=== PATIENT | male | born 1980 | race Two or more races ===

== ENCOUNTER 2020-09-07 12:11 | Emergency (ER) | payer SELFPAY ==
[~2020-09-07] VITALS: Ht 170.2 cm; Wt 95.0 kg
[2020-09-07 12:36] VITALS: BP 162/92
--- NOTE | 2020-09-07 13:17 | PHYS DOC ---
Past Medical History Past Medical History: No Pertinent History Past Surgical History: Other Additional Past Surgical Histo: LEFT ARM SURGERY Smoking Status: Never Smoker Alcohol Use: Occasionally General Adult EDM: Chief Complaint: KNEE INJURY HPI: HPI: Patient is a 40 year old Male who presents with last Friday began having left knee burning type pain with redness, heat and swelling to the medial aspect of the knee that he rates an 8 out of 10. Is been taking ibuprofen and glucosamine. Patient states that he went to his clinic and they told him just to rest the extremity and take ibuprofen. 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 He does have to go up and down ladders and stairs frequently. He denies injury to the knee. He denies any numbness or tingling, coolness of the extremity. Patient denies any past medical history. He denies any fevers. Review of Systems: Review of Systems: Constitutional: Denies fever or chills. [] Eyes: Denies change in visual acuity. [] HENT: Denies nasal congestion or sore throat. [] Respiratory: Denies cough or shortness of breath. [] Cardiovascular: Denies chest pain or edema. [] GI: Denies abdominal pain, nausea, vomiting, bloody stools or diarrhea. [] : Denies dysuria. [] Musculoskeletal: Denies back pain. +Left knee joint pain and swelling. [] Integument: Denies rash. + Left knee redness [] Neurologic: Denies headache, focal weakness or sensory changes. [] Endocrine: Denies polyuria or polydipsia. [] Lymphatic: Denies swollen glands. [] Psychiatric: Denies depression or anxiety. [] Heart Score: Risk Factors: Risk Factors: DM, Current or recent (<one month) smoker, HTN, HLP, family history of CAD, obesity. Risk Scores: Score 0 - 3: 2.5% MACE over next 6 weeks - Discharge Home Score 4 - 6: 20.3% MACE over next 6 weeks - Admit for Clinical Observation Score 7 - 10: 72.7% MACE over next 6 weeks - Early Invasive Strategies Allergies: Allergies: Allergies Coded Allergies Type Severity Reaction Last Updated Verified Penicillins Allergy Intermediate Rash 09/07/20 Yes Physical Exam: PE: Constitutional: Well developed, well nourished, no acute distress, non-toxic appearance. [] HENT: Normocephalic, atraumatic, bilateral external ears normal, oropharynx moist, no oral exudates, nose normal. [] Eyes: PERRLA, EOMI, conjunctiva normal, no discharge. [] Neck: Normal range of motion, no tenderness, supple, no stridor. [] Cardiovascular:Heart rate regular rhythm, no murmur [] Lungs & Thorax: Bilateral breath sounds clear to auscultation [] Abdomen: Bowel sounds normal, soft, no tenderness, no masses, no pulsatile masses. [] Skin: Warm, dry, left medial knee erythema, no rash. [] Back: No tenderness, no CVA tenderness. [] Extremities: Medial knee tenderness, no cyanosis, no clubbing, ROM intact, left knee 2+ edema. [] Neurologic: Alert and oriented X 3, normal motor function, normal sensory function, no focal deficits noted. [] Psychologic: Affect normal, judgement normal, mood normal. [] Current Patient Data: Vital Signs: Vital Signs Date Time Temp Pulse Resp B/P (MAP) Pulse Ox O2 Delivery O2 Flow Rate FiO2 09/07/20 12:36 98.3 97 12 162/92 (115) 97 Room Air 98.3 EKG: EKG: [] Radiology/Procedures: Radiology/Procedures: [] Impression: [facility] [address] [place], [place] [id number] IMAGING REPORT Signed PATIENT: MIRNA TALBERTOUNT: [id number] : 1980 LOCATION: ER AGE: 40 SEX: M EXAM STATUS: REG ER ORD. PHYSICIAN: REEMA RAMOS APRN REASON: pain, swelling, redness PROCEDURE: KNEE LEFT 4V XR KNEE _4 VIEWS WITH PATELLA_LT DATE: 09/07/2020 1:05 PM INDICATION: Reason: pain, swelling, redness / Spl. Instructions: / History: COMPARISON: None. FINDINGS: Bones: There is no evidence of acute fracture or dislocation. Joints: Mild medial compartment joint space narrowing. There is no joint effusion. Miscellaneous: Prepatellar soft tissue swelling. IMPRESSION: No acute osseous abnormality. Electronically signed by: Dayna Brooks MD (09/07/2020 2:19 PM) [id number] DICTATED and SIGNED BY: DAYNA BROOKS MD DATE: 09/07/20 [id number] 0 Course & Med Decision Making: Course & Med Decision Making Pertinent Labs and Imaging studies reviewed. (See chart for details) Left knee is 2+ swollen with medial redness and heat and tenderness with palpation. Skin otherwise pink warm and dry. Afebrile. Popliteal pulses present. Cap refill less than 2 seconds. And sensations intact. No focal we akness. He is able to ambulate and put pressure on the knee. It is painful to move the knee. He has full range of motion of the left knee. Blood cell count is slightly elevated at 11.5. CRP is elevated. Afebrile. I spoken to Dr. Kunz about this patient and he states to put him on Keflex and Bactrim and prednisone have him continue with the anti-inflammatory like ibuprofen. Patient is given vancomycin, Toradol and Solu-Medrol in the ED before leaving. [] Dragon Disclaimer: Dragon Disclaimer: This electronic medical record was generated, in whole or in part, using a voice recognition dictation system. Departure Departure Impression: Primary Impression: Bursitis Qualified Codes: M70.52 - Other bursitis of knee, left knee Disposition: 01 DC HOME SELF CARE/HOMELESS Condition: STABLE Referrals: NO PCP (PCP) MICHAEL BETH MD Patient Instructions: Bursitis Additional Instructions: Follow-up with primary care provider or I have referred you to Dr. Beth who is an orthopedic doctor. Try to follow-up in the next week. Take medication as prescribed and with food. Scripts Ibuprofen (IBUPROFEN) 600 Mg Tablet 600 MG PO PRN Q6HRS PRN for INFLAMMATION, #25 TAB Prov: REEMA RAMOS BEAM MACHINE OPERATOR 09/07/20 Prednisone (PREDNISONE) 20 Mg Tablet 1 TAB PO BID, #10 TAB Prov: REEMA RAMOS BEAM MACHINE OPERATOR 09/07/20 Sulfamethoxazole/Trimethoprim (BACTRIM DS TABLET) 1 Each Tablet 1 TAB PO BID for 10 Days, #20 TAB 0 Refills Prov: REEMA RAMOS BEAM MACHINE OPERATOR 09/07/20 Cephalexin (CEPHALEXIN) 500 Mg Tablet 1 TAB PO QID, #40 TAB Prov: REEMA RAMOS APRN 09/07/20 REEMA RAMOS APRN Sep 07, 2020 13:17
--- NOTE | 2020-09-07 14:21 | RAD ---
XR KNEE _4 VIEWS WITH PATELLA_LT DATE: 09/07/2020 1:05 PM INDICATION: Reason: pain, swelling, redness / Spl. Instructions: / History: COMPARISON: None. FINDINGS: Bones: There is no evidence of acute fracture or dislocation. Joints: Mild medial compartment joint space narrowing. There is no joint effusion. Miscellaneous: Prepatellar soft tissue swelling. IMPRESSION: No acute osseous abnormality. Electronically signed by: Denny Brooks MD (09/07/2020 2:19 PM) [id number]
[2020-09-07 14:22] LABS: BASO # 0.1 x10^3/uL (0.0-0.2); BASO % 1 % (0-3); EOS # 0.1 x10^3/uL (0.0-0.7); EOS % 1 % (0-3); HEMATOCRIT 40.6 % (39.0-53.0); HEMOGLOBIN 13.9 g/dL (13.0-17.5); LYMPH # 1.3 x10^3/uL (1.0-4.8); LYMPH % 11 % (24-48); MEAN CORPUSCULAR HEMOGLOBIN 30 pg (25-35); MEAN CORPUSCULAR HGB CONC 34 g/dL (31-37); MEAN CORPUSCULAR VOLUME 88 fL (79-100); MONO % 9 % (0-9); NEUT % 79 % (31-73); PLATELET COUNT 258 x10^3/uL (140-400); RED BLOOD COUNT 4.61 x10^6/uL (4.30-5.70); WHITE BLOOD COUNT 11.5 x10^3/uL (4.0-11.0)
[2020-09-07 14:43] LABS: CALCIUM 8.8 mg/dL (8.5-10.1); CREATININE 0.7 mg/dL (0.7-1.3); GFR 124.3; POTASSIUM 3.9 mmol/L (3.5-5.1)
[2020-09-07 14:50] LABS: ALBUMIN 3.5 g/dL (3.4-5.0); ALBUMIN/GLOBULIN RATIO 0.8 (1.0-1.7); C-REACTIVE PROTEIN 35.5 mg/L (0-3.3); TOTAL BILIRUBIN 0.3 mg/dL (0.2-1.0); TOTAL PROTEIN 8.1 g/dL (6.4-8.2); URIC ACID 4.4 mg/dL (3.5-7.2)
[2020-09-07] MEDS ORDERED: IBUP-1007 PO (15:09)
[2020-09-07] MEDS ORDERED: CEPH500T PO (15:09)
[2020-09-07] MEDS ORDERED: PRED20TA PO (15:09)
[2020-09-07] MEDS ORDERED: SULF1TAB24 PO (15:09)
[2020-09-07] MEDS ORDERED: VANCOMYCIN 1GM IVPB FOR OMNI 250 ML IV ONE (15:15)
[2020-09-07] MEDS ORDERED: methylPREDNISolone SOD SUCC PF 125 MG/2 ML VIAL. IV ONE (15:15)
[2020-09-07] MEDS ORDERED: KETOROLAC 30 MG/ML VIAL. IVP ONE (15:15)
[2020-09-07] MEDS ORDERED: VANCOMYCIN 2 GM in IV NORMAL SALINE 500ML BAG 500 ML IV ONE (15:30)
== END 2020-09-07 18:27 | disposition home or self-care (01) ==
LOC: ER 12:11 → EDBD 12:11 → ER 18:27
DX: M70.52 Other bursitis of knee, left knee (principal); M25.562 Pain in left knee; R60.0 Localized edema; Z98.890 Other specified postprocedural states
CPT/HCPCS: 36415; 73564; 80053; 84550; 85025; 86140; 96365; 96375; 99284; J1885; J2930; J3370; J7040

== ENCOUNTER 2020-09-21 09:24 | Inpatient (IN) | payer SELFPAY ==
[~2020-09-21] VITALS: Ht 175.3 cm; Wt 102.3 kg
[~2020-09-21 09:24] MED LIST: CEPH500T PO; IBUP-1007 PO; MORPHINE SULFATE 4 MG/ML VIAL. IV PRN; PRED20TA PO; SULF1TAB24 PO
--- NOTE | 2020-09-21 10:12 | PHYS DOC ---
Past Medical History Past Medical History: No Pertinent History Past Surgical History: Other Additional Past Surgical Histo: LEFT ARM SURGERY Smoking Status: Never Smoker Alcohol Use: Occasionally General Adult EDM: Chief Complaint: KNEE SWELLING HPI: HPI: 40 male with no pmh presents to the ed with his daughter, c/o left medial knee swelling/warmth and redness that started 2-3 weeks ago, no change with ciprofloxacin, Keflex and dicloxacillin (dicloxacillin started yesterday by Dr. Hall). Was seen by Dr. Hall yesterday and was told arthrocentesis was not indicated, that if patient felt worse to come to the ED. EMR reviewed-pt was prescribed Bactrim and Keflex on 07 September, suspected bursitis. Pt able to bend knee and ambulate-has no restricted range of motion. No history of gout or IV drug use. Denies any trauma. States 2 months ago he banged his knee on the dashboard getting in and out of his vehicle-but was able to ambulate and bend the knee immediately after this event without any significant pain. Review of Systems: Review of Systems: Constitutional: Denies fever or chills. [] Eyes: Denies change in visual acuity. [] HENT: Denies nasal congestion or sore throat. [] Respiratory: Denies cough or shortness of breath. [] Cardiovascular: Denies chest pain or edema. [] GI: Denies abdominal pain, nausea, vomiting, bloody stools or diarrhea. [] : Denies dysuria or hematuria Musculoskeletal: Denies back pain or flank pain Integument: Denies diaphoresis or black skin Neurologic: Denies headache, focal weakness or sensory changes. [] Endocrine: Denies polyuria or polydipsia. [] Lymphatic: Denies swollen glands. [] Psychiatric: Denies depression or anxiety. [] Heart Score: Risk Factors: Risk Factors: DM, Current or recent (<one month) smoker, HTN, HLP, family history of CAD, obesity. Risk Scores: Score 0 - 3: 2.5% MACE over next 6 weeks - Discharge Home Score 4 - 6: 20.3% MACE over next 6 weeks - Admit for Clinical Observation Score 7 - 10: 72.7% MACE over next 6 weeks - Early Invasive Strategies Allergies: Allergies: Allergies Coded Allergies Type Severity Reaction Last Updated Verified Penicillins Allergy Intermediate Rash 09/07/20 Yes Physical Exam: PE: Constitutional: Well developed, well nourished, no acute distress, non-toxic appearance. HENT: Normocephalic, atraumatic, Eyes: EOMI, conjunctiva normal, no discharge. Neck: Normal range of motion, supple, Cardiovascular: S1/2 present, regular rhythm Lungs & Thorax: Speaking in full sentences, bilateral equal chest rise, no tachypnea or increased work of breathing Abdomen: soft, no tenderness, Skin: Warm, dry, raised/indurated/erythematous 3x3cm region over medial left knee (at 7 o'clock position in regards to patella, but is lateral to the patella) Back: No tenderness, no CVA tenderness. [] Extremities: No tenderness, no cyanosis, no edema Neurologic: Alert and oriented X 3, normal motor function, normal sensory function, no focal deficits noted. [] Psychologic: Affect normal, judgement normal, mood normal. [] Current Patient Data: Vital Signs: Vital Signs Date Time Temp Pulse Resp B/P (MAP) Pulse Ox O2 Delivery O2 Flow Rate FiO2 09/21/20 09:36 98.3 64 18 138/87 (104) 97 Room Air 98.3 EKG: EKG: [] Radiology/Procedures: Radiology/Procedures: IMAGING REPORT Signed PATIENT: YANELIS TALBERT: [id number] : 1980 LOCATION: ER AGE: 40 SEX: M EXAM STATUS: REG ER ORD. PHYSICIAN: JAMES HUNG DO REASON: anterior medial pain, swelling below patella PROCEDURE: KNEE LEFT 3V 3 views right knee 09/21/2020 9:54 AM Indication: Reason: anterior medial pain, swelling below patella / Spl. Instructions: / History: Comparison: None Findings: There appears to be an osteochondral defect/fracture involving the superior medial femoral condyle. No other fracture or dislocation is identified. Significant joint effusion is identified. IMPRESSION: Possible osteochondral defect/fracture involving superior medial femoral condyle. Recommend CT or MRI for confirmation/further evaluation Electronically signed by: Andrea Aly MD (09/21/2020 10:26 AM) [id number] DICTATED and SIGNED BY: ANDREA ALY MD DATE: 09/21/20 [id number] 0 Indication: Left knee effusion Consent: Consent given by patient. Procedure: The patient was positioned appropriately and the landmarks were identified. Local anesthesia was used in the 4 o'clock position and 11 o'clock position surrounding the patella. The area was then prepped and draped in the usual sterile fashion. A needle was then introduced into the joint space -both attempts with no fluid aspirated. Ultrasound was used-cobblestoning over left lateral patella and medial aspect of patella. There is an effusion that is approximately 1.5- 2 inches above the patella but via ultrasound, collection does not connect to the joint space -skin over this effusion normal-not red/indurated The patient tolerated the procedure well. Complications: none. Course & Med Decision Making: Course & Med Decision Making Pertinent Labs and Imaging studies reviewed. (See chart for details) Concern for medial left knee cellulitis that has significantly improved from his prior infection 2 weeks ago, but is still present. Daughter was present at bedside and said initially the cellulitis extended over his distal medial thigh and left lower medial leg. I spoke with Dr. Colón, Ortho, regarding ultrasound findings/cobblestoning (which is c/w cellulitis), dry arthrocentesis attempt x2. Patient afebrile with no leukocytosis, CRP is not elevated. Patient is able to bend the knee. These are not signs consistent with septic joint. I suspect cellulitis has not fully resolved and patient is requiring further antibiotics. Will admit for abx and ID consultation. Ortho to follow. Patient excepted by Dr. Davison. Patient agrees with this plan and was stable at time of admission. I have spoken with the patient and/or caregivers. I have explained the patient's condition, diagnosis and treatment plan based on the information available to me at this time. I have answered the patient's and/or caregivers questions and answered any concerns. The patient and/or caregivers have as good an understanding of the patient's diagnosis, condition and treatment plan as can be expected at this point. The patient has been stabilized within the capability of the emergency department. The patient will be transported for further care and management or will be moved to an observation or inpatient service. I have communicated with the staff or medical practitioner taking over this patient's care. Joce Disclaimer: Joce Disclaimer: This electronic medical record was generated, in whole or in part, using a voice recognition dictation system. Departure Departure Impression: Primary Impression: Cellulitis of left knee Disposition: ADMITTED INPT THIS HOSP Admitting Physician: GILMER (Dr. Davison) Condition: STABLE Referrals: NO PCP (PCP) JAMES HUNG DO Sep 21, 2020 10:11
[2020-09-21] MEDS ORDERED: VANCOMYCIN PER PHARMACY MC PRN (10:15)
--- NOTE | 2020-09-21 10:28 | RAD ---
3 views right knee 09/21/2020 9:54 AM Indication: Reason: anterior medial pain, swelling below patella / Spl. Instructions: / History: Comparison: None Findings: There appears to be an osteochondral defect/fracture involving the superior medial femoral condyle. No other fracture or dislocation is identified. Significant joint effusion is identified. IMPRESSION: Possible osteochondral defect/fracture involving superior medial femoral condyle. Recomme nd CT or MRI for confirmation/further evaluation Electronically signed by: Andrea Peter MD (09/21/2020 10:26 AM) [id number]
[2020-09-21] MEDS ORDERED: VANCOMYCIN 2 GM in IV NORMAL SALINE 500ML BAG 500 ML IV ONE (10:30)
[2020-09-21 10:43] LABS: BASO % 1 % (0-3); EOS # 0.2 x10^3/uL (0.0-0.7); EOS % 3 % (0-3); HEMATOCRIT 40.7 % (39.0-53.0); HEMOGLOBIN 13.8 g/dL (13.0-17.5); LYMPH # 1.8 x10^3/uL (1.0-4.8); LYMPH % 29 % (24-48); MEAN CORPUSCULAR HEMOGLOBIN 30 pg (25-35); MEAN CORPUSCULAR HGB CONC 34 g/dL (31-37); MEAN CORPUSCULAR VOLUME 88 fL (79-100); MONO # 0.5 x10^3/uL (0.0-1.1); MONO % 8 % (0-9); NEUT # 3.8 x10^3/uL (1.8-7.7); NEUT % 60 % (31-73); PLATELET COUNT 227 x10^3/uL (140-400); RED BLOOD COUNT 4.64 x10^6/uL (4.30-5.70); RED CELL DISTRIBUTION WIDTH 14.5 % (11.5-14.5); WHITE BLOOD COUNT 6.3 x10^3/uL (4.0-11.0)
[2020-09-21] MEDS ORDERED: BUPIVACAINE MPF 0.5% 30 ML VIAL. INJ ONE (10:45)
[2020-09-21 10:51] LABS: ANION GAP 10 (6-14); BLOOD UREA NITROGEN 15 mg/dL (8-26); CARBON DIOXIDE 26 mmol/L (21-32); CHLORIDE 104 mmol/L (98-107); CREATININE 0.7 mg/dL (0.7-1.3); GFR 124.3; GLUCOSE 92 mg/dL (70-99); POTASSIUM 4.3 mmol/L (3.5-5.1); SODIUM 140 mmol/L (136-145)
[2020-09-21 10:54] LABS: C-REACTIVE PROTEIN < 0.5 mg/L (0-3.3)
[2020-09-21 11:23] LABS: PROTHROMBIN TIME PATIENT 13.4 SEC (11.7-14.0)
[2020-09-21] MEDS ORDERED: fentaNYL PF VIAL 100 MCG/2 ML VIAL IV PRN (15:15)
[2020-09-21] MEDS ORDERED: ONDANSETRON PF 4 MG/2 ML VIAL. IV PRN (15:15)
[2020-09-21] MEDS ORDERED: DEXTROSE 50% 25 GM / 50ML DISP.SYRIN. IV PRN (15:45)
[2020-09-21] MEDS ORDERED: ACETAMINOPHEN 325 MG TABLET. PO PRN (15:45)
[2020-09-21] MEDS ORDERED: DOCUSATE SODIUM 100 MG CAPSULE. PO PRN (15:45)
[2020-09-21] MEDS ORDERED: ONDANSETRON PF 4 MG/2 ML VIAL. IVP PRN (15:45)
[2020-09-21] MEDS ORDERED: MORPHINE SULFATE 2 MG/ML VIAL. IV PRN (15:45)
[2020-09-21] MEDS ORDERED: SENNOSIDES 8.6 MG TABLET PO PRN (15:45)
--- NOTE | 2020-09-21 16:44 | NUR ---
Pharmacy Vancomycin Dosing Note S:Consulted to monitor and dose vancomycin started 09/21/20. O:CALEB TALBERT is a 40 year old M with cellulitis. Height: 5 feet, 9 inches Weight: 100.0 kg Dosing Weight: Actual Other Antibiotics: N/A LABS: Last BUN: 15 Last Creatinine: 0.7 Creatinine Clearance: > 100 Last WBC: 6.3 Tmax (past 24 hours): 98.3 Microbiology: BLOOD CX IN PROCESS A: Patient requires vancomycin for cellulitis, goal trough 10-20 mcg/ml. His SCr is 0.7 with an eCrCl of > 120 ml/min. Vancomycin 2g dose given in ER earlier today. P: 1. Initiate Vancomycin 1500 mg IV q8h 2. Follow up Trough level on 09/22/20 at 1030 3. Pharmacy will continue to monitor, follow and adjust therapy as needed. MARIELA BROWN, [facility], 09/21/20 [id number]
[2020-09-21] MEDS: VANCOMYCIN 1.5 GM in IV NORMAL SALINE 500ML BAG 500 ML IV SCH (16:58)
--- NOTE | 2020-09-21 17:42 | PDOC1 ---
History and Physical Date of Service: DOS: DATE: 09/21/20 TIME: 17:35 Chief Complaint: Chief Complain: Left knee swelling and redness History of Present Illness: HPI: 40 male with no pmh presents to the ed with his daughter, c/o left medial knee swelling/warmth and redness that started 2-3 weeks ago, no change with ciprofloxacin, Keflex and dicloxacillin (dicloxacillin started yesterday by Dr. Hall). Was seen by Dr. Hall yesterday and was told arthrocentesis was not indicated, that if patient felt worse to come to the ED. EMR reviewed-pt was prescribed Bactrim and Keflex on 07 September, suspected bursitis. Pt able to bend knee and ambulate-has no restricted range of motion. No history of gout or IV drug use. Denies any trauma. States 2 months ago he banged his knee on the dashboard getting in and out of his vehicle-but was able to ambulate and bend the knee immediately after this event without any significant pain. Concern for medial left knee cellulitis that has significantly improved from his prior infection 2 weeks ago, but is still present. Daughter was present at bedside and said initially the cellulitis extended over his distal medial thigh and left lower medial leg. I spoke with Dr. Colón, Ortho, regarding ultrasound findings/cobblestoning (which is c/w cellulitis), dry arthrocentesis attempt x2. Patient afebrile with no leukocytosis, CRP is not elevated. Patient is able to bend the knee. These are not signs consistent with septic joint. Will admit for abx and ID consultation. Ortho to follow. Past Medical/Surgical History: PMH/PSH: Past Medical History: No Pertinent History Past Surgical History: LEFT ARM SURGERY Allergies: Allergies: Coded Allergies: Penicillins (Verified Allergy, Intermediate, Rash, 09/07/20) Family History: Family History: Reviewed with no relevant findings Social History: Social History: Smoking Status: Never Smoker Alcohol Use: Occasionally Current Medications: Current Medications Current Medications Vancomycin HCl (Vanco Per Pharmacy) 1 each PRN DAILY PRN MC SEE COMMENTS Last administered on 09/21/20at 16:42; Start 09/21/20 at 10:15 Vancomycin HCl 2 gm/Sodium Chloride 500 ml @ 250 mls/hr 1X ONCE IV Last admi nistered on 09/21/20at 10:35; Start 09/21/20 at 10:30; Stop 09/21/20 at 12:29; Status DC Bupivacaine HCl (Sensorcaine Mpf 0.5%) 30 ml 1X ONCE INJ Last administered on 09/21/20at 13:23; Start 09/21/20 at 10:45; Stop 09/21/20 at 10:46; Status DC Ondansetron HCl (Zofran) 4 mg PRN Q8HRS PRN IV NAUSEA/VOMITING; Start 09/21/20 at 15:15; Stop 09/22/20 at 15:14 Fentanyl Citrate (Fentanyl 2ml Vial) 50 mcg PRN Q1HR PRN IV PAIN; Start 09/21/20 at 15:15; Stop 09/22/20 at 15:14 Sennosides (Senna) 17.2 mg PRN BID PRN PO CONSTIPATION; Start 09/21/20 at 15:45 Docusate Sodium (Colace) 100 mg PRN DAILY PRN PO HARD STOOLS; Start 09/21/20 at 15:45 Ondansetron HCl (Zofran) 4 mg PRN Q6HRS PRN IVP NAUSEA/VOMITING; Start 09/21/20 at 15:45 Dextrose (Dextrose 50%-Water Syringe) 12.5 gm PRN Q15MIN PRN IV SEE COMMENTS; Start 09/21/20 at 15:45 Acetaminophen (Tylenol) 650 mg PRN Q4HRS PRN PO TEMP OVER 100.4F OR MILD PAIN; Start 09/21/20 at 15:45 Enoxaparin Sodium (Lovenox 40mg Syringe) 40 mg Q24H SQ ; Start 09/22/20 at 09:00 Morphine Sulfate (Morphine Sulfate) 1 mg PRN Q1HR PRN IV PAIN; Start 09/21/20 at 15:45 Morphine Sulfate (Morphine Sulfate) 2 mg PRN Q2HR PRN IV SEVERE PAIN 7-10; Start 09/21/20 at 04:00; Stop 09/22/20 at 03:59 Vancomycin HCl 1.5 gm/Sodium Chloride 500 ml @ 250 mls/hr Q8H IV Last administered on 09/21/20at 16:58; Start 09/21/20 at 17:00 Vancomycin HCl (Vancomycin Trough Level) 1 each 1X ONCE MC ; Start 09/22/20 at 10:30; Stop 09/22/20 at 10:31 Active Scripts Active Ibuprofen 600 Mg Tablet 600 Mg PO PRN Q6HRS PRN Prednisone 20 Mg Tablet 1 Tab PO BID Bactrim Ds Tablet (Sulfamethoxazole/Trimethoprim) 1 Each Tablet 1 Tab PO BID 10 Days Cephalexin 500 Mg Tablet 1 Tab PO QID ROS: Review of Systems Review of System REVIEW OF SYSTEMS: GENERAL: Denies weakness SKIN: No bruising, hair changes or rashes. EYES: No blurred, double or loss of vision. NOSE AND THROAT: No history of nosebleeds, hoarseness or sore throat. HEART: No history of palpitations, chest pain or shortness of breath on exertion. LUNGS: Denies cough, hemoptysis, wheezing or shortness of breath. GASTROINTESTINAL: Denies changes in appetite, nausea, vomiting, diarrhea or constipation. GENITOURINARY: No history of frequency, urgency, hesitancy or nocturia. NEUROLOGIC: Denies history of numbness, tingling, or tremor. PSYCHIATRIC: No history of panic, anxiety or depression. ENDOCRINE: No history of heat or cold intolerance, polyuria or polydipsia. EXTREMITIES: Denies joint pain, pain on walking or stiffness. Physical Exam: Vital Signs: Vital Signs Date Time Temp Pulse Resp B/P (MAP) Pulse Ox O2 Delivery O2 Flow Rate FiO2 09/21/20 15:33 70 122/66 (84) 100 Room Air 09/21/20 13:33 16 09/21/20 09:36 98.3 98.3 Physcial Exam: GEN: No apparent distress. Alert and oriented HEENT: Normal cephalic, atraumatic, external auditory canals are patent EYES: Extraocular muscles are intact, pupil are equally round and reactive to light and accommodation MUSCULOSKELETAL: Well developed , well nourished, good range of motion ENDOCRINE: No thyromegaly was palpated LYMPHATICS: No cervical chain or axillary nodes were noted HEMATOPOIETIC: No bruising NECK: Supple, no JVD, no thyromegaly was noted LUNGS: Clear to auscultation in all lung childress without rhonchi or wheezing HEART: RRR, S!, S2 present. Peripheral pulses intact, no obvious murmurs noted ABDOMEN: Soft, nontender. Positive bowel sounds, no organomegaly, normal bowel sounds EXTREMITIES: Without clubbing, cyanosis, or edema. Pedal pulses intact. Negative Homans sign NEUROLOGIC: Normal speech and tone. A&O x 3, moves all extremities, no obvious focal deficits PSYCHIATRIC: Normal affect, normal mood. Stable SKIN: No ulcerations or rashes, good skin turgor, no jaundice VASCULAR: Good capillary refill, neurovascular bundle appears to be intact Labs: Labs: Laboratory Tests Test 09/21/20 10:29 White Blood Count 6.3 x10^3/uL (4.0-11.0) Red Blood Count 4.64 x10^6/uL (4.30-5.70) Hemoglobin 13.8 g/dL (13.0-17.5) Hematocrit 40.7 % (39.0-53.0) Mean Corpuscular Volume 88 fL (79-100) Mean Corpuscular Hemoglobin 30 pg (25-35) Mean Corpuscular Hemoglobin Concent 34 g/dL (31-37) Red Cell Distribution Width 14.5 % (11.5-14.5) Platelet Count 227 x10^3/uL (140-400) Neutrophils (%) (Auto) 60 % (31-73) Lymphocytes (%) (Auto) 29 % (24-48) Monocytes (%) (Auto) 8 % (0-9) Eosinophils (%) (Auto) 3 % (0-3) Basophils (%) (Auto) 1 % (0-3) Neutrophils # (Auto) 3.8 x10^3/uL (1.8-7.7) Lymphocytes # (Auto) 1.8 x10^3/uL (1.0-4.8) Monocytes # (Auto) 0.5 x10^3/uL (0.0-1.1) Eosinophils # (Auto) 0.2 x10^3/uL (0.0-0.7) Basophils # (Auto) 0.0 x10^3/uL (0.0-0.2) Prothrombin Time 13.4 SEC (11.7-14.0) Prothromb Time International Ratio 1.1 (0.8-1.1) Activated Partial Thromboplast Time 29 SEC (24-38) Sodium Level 140 mmol/L (136-145) Potassium Level 4.3 mmol/L (3.5-5.1) Chloride Level 104 mmol/L (98-107) Carbon Dioxide Level 26 mmol/L (21-32) Anion Gap 10 (6-14) Blood Urea Nitrogen 15 mg/dL (8-26) Creatinine 0.7 mg/dL (0.7-1.3) Estimated GFR (Cockcroft-Gault) 124.3 Glucose Level 92 mg/dL (70-99) Lactic Acid Level 1.2 mmol/L (0.4-2.0) Calcium Level 9.0 mg/dL (8.5-10.1) C-Reactive Protein, Quantitative < 0.5 mg/L (0-3.3) Laboratory Tests Test 09/21/20 10:29 White Blood Count 6.3 x10^3/uL (4.0-11.0) Red Blood Count 4.64 x10^6/uL (4.30-5.70) Hemoglobin 13.8 g/dL (13.0-17.5) Hematocrit 40.7 % (39.0-53.0) Mean Corpuscular Volume 88 fL (79-100) Mean Corpuscular Hemoglobin 30 pg (25-35) Mean Corpuscular Hemoglobin Concent 34 g/dL (31-37) Red Cell Distribution Width 14.5 % (11.5-14.5) Platelet Count 227 x10^3/uL (140-400) Neutrophils (%) (Auto) 60 % (31-73) Lymphocytes (%) (Auto) 29 % (24-48) Monocytes (%) (Auto) 8 % (0-9) Eosinophils (%) (Auto) 3 % (0-3) Basophils (%) (Auto) 1 % (0-3) Neutrophils # (Auto) 3.8 x10^3/uL (1.8-7.7) Lymphocytes # (Auto) 1.8 x10^3/uL (1.0-4.8) Monocytes # (Auto) 0.5 x10^3/uL (0.0-1.1) Eosinophils # (Auto) 0.2 x10^3/uL (0.0-0.7) Basophils # (Auto) 0.0 x10^3/uL (0.0-0.2) Prothrombin Time 13.4 SEC (11.7-14.0) Prothromb Time International Ratio 1.1 (0.8-1.1) Activated Partial Thromboplast Time 29 SEC (24-38) Sodium Level 140 mmol/L (136-145) Potassium Level 4.3 mmol/L (3.5-5.1) Chloride Level 104 mmol/L (98-107) Carbon Dioxide Level 26 mmol/L (21-32) Anion Gap 10 (6-14) Blood Urea Nitrogen 15 mg/dL (8-26) Creatinine 0.7 mg/dL (0.7-1.3) Estimated GFR (Cockcroft-Gault) 124.3 Glucose Level 92 mg/dL (70-99) Lactic Acid Level 1.2 mmol/L (0.4-2.0) Calcium Level 9.0 mg/dL (8.5-10.1) C-Reactive Protein, Quantitative < 0.5 mg/L (0-3.3) Images: Images LEFT KNEE XR IMPRESSION: Possible osteochondral defect/fracture involving superior medial femoral condyle. Recommend CT or MRI for confirmation/further evaluation Assessment/Plan Assessment/Plan Left knee cellulitis failed outpatient p.o. antibiotic management Possible osteochondral defect/fracture involving superior medial femoral condyle. Admit to medicine for further management Continue IV vancomycin ID consult for antibiotic recommendations Ortho consult We will consider further CT/MRI imaging Lovenox for DVT prophylaxis ADA diet Full code Discussed with RN and SW Disposition patient management as above Surrogate decision maker is the Justifications for Admission Other Justification Right knee cellulitis ISAIAH POPE MD Sep 21, 2020 17:42
[2020-09-21 19:00] VITALS: BP 140/83
[2020-09-21 23:07] VITALS: BP 138/86
[2020-09-22] MEDS: VANCOMYCIN 1.5 GM in IV NORMAL SALINE 500ML BAG 500 ML IV SCH (00:43)
[2020-09-22 03:00] VITALS: BP 120/75
[2020-09-22 07:00] VITALS: BP 128/78
--- NOTE | 2020-09-22 08:14 | PDOC ---
Infectious Disease Note Vital Sign Vital Signs Vital Signs Date Time Temp Pulse Resp B/P (MAP) Pulse Ox O2 Delivery O2 Flow Rate FiO2 09/22/20 03:00 97.3 64 18 120/75 (90) 95 Room Air 97.3 Labs Lab Laboratory Tests Test 09/21/20 10:29 White Blood Count 6.3 x10^3/uL (4.0-11.0) Red Blood Count 4.64 x10^6/uL (4.30-5.70) Hemoglobin 13.8 g/dL (13.0-17.5) Hematocrit 40.7 % (39.0-53.0) Mean Corpuscular Volume 88 fL (79-100) Mean Corpuscular Hemoglobin 30 pg (25-35) Mean Corpuscular Hemoglobin Concent 34 g/dL (31-37) Red Cell Distribution Width 14.5 % (11.5-14.5) Platelet Count 227 x10^3/uL (140-400) Neutrophils (%) (Auto) 60 % (31-73) Lymphocytes (%) (Auto) 29 % (24-48) Monocytes (%) (Auto) 8 % (0-9) Eosinophils (%) (Auto) 3 % (0-3) Basophils (%) (Auto) 1 % (0-3) Neutrophils # (Auto) 3.8 x10^3/uL (1.8-7.7) Lymphocytes # (Auto) 1.8 x10^3/uL (1.0-4.8) Monocytes # (Auto) 0.5 x10^3/uL (0.0-1.1) Eosinophils # (Auto) 0.2 x10^3/uL (0.0-0.7) Basophils # (Auto) 0.0 x10^3/uL (0.0-0.2) Prothrombin Time 13.4 SEC (11.7-14.0) Prothromb Time International Ratio 1.1 (0.8-1.1) Activated Partial Thromboplast Time 29 SEC (24-38) Sodium Level 140 mmol/L (136-145) Potassium Level 4.3 mmol/L (3.5-5.1) Chloride Level 104 mmol/L (98-107) Carbon Dioxide Level 26 mmol/L (21-32) Anion Gap 10 (6-14) Blood Urea Nitrogen 15 mg/dL (8-26) Creatinine 0.7 mg/dL (0.7-1.3) Estimated GFR (Cockcroft-Gault) 124.3 Glucose Level 92 mg/dL (70-99) Lactic Acid Level 1.2 mmol/L (0.4-2.0) Calcium Level 9.0 mg/dL (8.5-10.1) C-Reactive Protein, Quantitative < 0.5 mg/L (0-3.3) Objective Assessment pt seen, consult dictated Plan Plan of Care // COLT CHENG MD Sep 22, 2020 08:14
--- NOTE | 2020-09-22 08:52 | CONS ---
DATE OF CONSULTATION: 09/22/2020 REQUESTING PHYSICIAN: Ham Davison MD. REASON FOR CONSULTATION: Knee bursitis. 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 The patient had tried some outpatient antibiotics and then he was admitted for further management. The patient denies any fever, denies any nausea, vomiting, diarrhea, denies any other complaints. The patient, in fact, he himself says he is looking much better now today. PAST MEDICAL HISTORY: He has had wrist and upper extremity surgery done in the past, otherwise unremarkable. SOCIAL HISTORY: Negative for smoking, alcohol or illicit drug use. ALLERGIES: TO PENICILLIN. ROS : as per HPI, rest neg. CURRENT MEDICATIONS: Reviewed. The patient is on vancomycin. PHYSICAL EXAMINATION: GENERAL: Alert, oriented gentleman, not in any distress. VITAL SIGNS: Stable, afebrile. HEENT: NAD. NECK: Supple, no JVP, no lymphadenopathy. LUNGS: Clear. HEART: S1, S2 regular. ABDOMEN: Benign. EXTREMITIES: No edema, cyanosis. SKIN: Unremarkable except the left knee, there is no joint fluid, the prepatellar bursa is slightly inflamed, but as I mentioned, according to the patient, is much improved now. Minimal swelling and minimal thickening and tenderness present. NEUROLOGIC: The patient is neurologically alert, awake and appropriate. No focal neurologic deficit. LABORATORY DATA: White count is normal. BUN and creatinine are normal. CRP is less than 0.5. Knee x-ray was unremarkable. IMPRESSION: Prepatellar bursitis. RECOMMENDATIONS: The patient can be discharged on p.o. antibiotics. The patient was told to take some anti-inflammatory as well as avoid working on his knees. Thank you very much, Dr. Davison, for giving me the opportunity to participate in this patient's care. COLT CHENG MD DR: VIVIAN/dina JOB#: [id number] / [id number] SKY
[2020-09-22] MEDS ORDERED: CEFDINIR 300 MG CAPSULE PO SCH (09:00)
[2020-09-22] MEDS ORDERED: ENOXAPARIN 40 MG/0.4 ML SYRINGE. SQ SCH (09:00)
--- NOTE | 2020-09-22 09:40 | NUR ---
SW following. Discussed with RN, pt from home, room air, regular diet. Pt switched to oral abx. RN anticipates discharge home today. Med Assist following for self pay status. SW will continue to follow.
[2020-09-22 11:00] VITALS: BP 132/76
--- NOTE | 2020-09-22 11:59 | PDOC ---
[facility] PROGRESS NOTE Date of Service DOS: DATE: 09/22/20 TIME: 11:51 Chief Complaint Chief Complaint Left medial knee swelling and redness History of Present Illness History of Present Illness 09-22-20 - Pt seen and examined at bedside. - Cecil RN and medical case worker. - Chart reviewed. Vitals/I&O Vitals/I&O: Vital Signs Date Time Temp Pulse Resp B/P (MAP) Pulse Ox O2 Delivery O2 Flow Rate FiO2 09/22/20 11:00 98.0 68 18 132/76 (94) 98 Room Air 98.0 I & O0 09/21/20 09/21/20 09/22/20 15:00 23:00 07:00 Intake Total 500 ml 200 ml Balance 500 ml 200 ml Physical Exam General: Alert, Oriented X3, Cooperative, No acute distress Heart: Regular rate, Normal S1, Normal S2 Lungs: Clear Abdomen: Normal bowel sounds, Soft, No tenderness Extremities: No clubbing, No cyanosis Skin: No rashes, No breakdown Review of Systems Review of Systems: No chest pain or SOA. No vomiting or diarrhea. No headaches or dizziness. Assessment and Plan Assessmemt and Plan Problems Medical Problems: (1) Cellulitis of left knee Status: Acute Assessment: 1. Left knee bursitis Plan: 1. Cont antibiotics 2. DVT prophylaxis 3. Full code 4. Appreciate specialist input 5. Probable discharge home today Comment Review of Relevant I have reviewed the following items joe (where applicable) has been applied. Medications: Current Medications Medications (Trade) Dose Ordered Sig/Candice Route PRN Reason Start Time Stop Time Status Last Admin Dose Admin Vancomycin HCl 1.5 gm/Sodium Chloride 500 ml @ 250 mls/hr Q8H IV 09/21/20 17:00 09/22/20 08:16 DC 09/22/20 00:43 Cefdinir (Omnicef) 300 mg BID PO 09/22/20 09:00 09/22/20 08:51 Justifications for Admission Other Justification Right knee cellulitis ESME PADILLA III DO Sep 22, 2020 11:59
--- NOTE | 2020-09-22 13:32 | DS ---
DATE OF DISCHARGE: 09/22/2020 ADMISSION DIAGNOSIS: Cellulitis of the left knee. DISCHARGE DIAGNOSIS: Resolving left knee bursitis. CONSULTS: Jorgito Ontiveros MD, Infectious Disease. HOSPITAL COURSE: The patient is a pleasant middle-aged male, who presented with left knee pain and we were concerned he could have some cellulitis. He was admitted. We consulted Infectious Disease, gave him IV antibiotics. Today, he is at his baseline, he is doing better. He wants to go home. Infectious Disease was okay with him going home on p.o. antibiotics. We plan to discharge. DISPOSITION: Home. ACTIVITY: As tolerated. DIET: Low sodium. MEDICATIONS: Please see the MRAD. TOTAL TIME: 32 minutes. ESME PADILLA DO DR: KORIN/dina JOB#: [id number] / [id number]
[2020-09-22] MEDS ORDERED: LACTOBACILLUS RHAMNOSUS GG 1 CAPSULE. PO SCH (21:00)
--- NOTE | 2020-09-22 23:31 | CONS ---
DATE OF CONSULTATION: 09/22/2020 REQUESTING CONSULTATION: Dr. Concepcion Roche. REASON FOR CONSULTATION: Left knee cellulitis. HISTORY OF PRESENT ILLNESS: The patient is a 40-year-old male that was seen in our clinic previously with some left knee swelling, warmth and redness that reportedly started about 2-3 weeks ago. He had been on a course of multiple different antibiotics from his primary care physician including Keflex, ciprofloxacin and dicloxacillin and he was seen in the Emergency Department after having what he suspected was swelling in his knee joint after worsening bursitis. He denies any trauma to the knee, particularly any penetrating type trauma, other illness, history of IV drug use or other inflammatory conditions. He does have a remote history of hitting his knee on the dashboard getting in and out of his car, but indicates that he was able to get up and around with the knee without significant limitations following that episode. PAST MEDICAL HISTORY: Denies any past medical history. PAST SURGICAL HISTORY: Significantly only on his left arm. MEDICATIONS: His only medications really are the recent antibiotics that were indicated including previous Bactrim and Keflex. ALLERGIES: HE LISTS ALLERGIES TO PENICILLIN, WHICH GAVE HIM A RASH IN THE PAST. SOCIAL HISTORY: Denies smoking. Occasional social alcohol use, denies drug use. REVIEW OF SYSTEMS: Notes increased swelling and pain of the knee, despite the antibiotics. Again, denies any penetrating trauma, other joint pain, gout or other inflammatory conditions and no fever, chills or other constitutional symptoms. He did have according to the Emergency Department physician Dr. Roche, aspiration under ultrasound, but really did not get significant fluid and there was no knee effusion noted. Further on his admission, the cellulitis changes were noted to be superficial by Dr. Roche, but he was admitted for IV antibiotics and hospitalist consultation. On examination, currently he notes that after having the IV antibiotics overnight, his knee is significantly improved. He can bend his knee with no problems and really has no pain. He can bear weight fully. PHYSICAL EXAMINATION: EXTREMITIES: His ligaments are stable. There is no evidence of any knee effusion. He does have some prominence distal over the patellar tendon area in the prepatellar bursa area, but it is really not tender on palpation. Currently, I do not note any type of knee effusion at all. Patellofemoral tracking is normal without any warmth, erythema or instability. There is no joint line tenderness. Negative Thomas's. He has normal examination of the contralateral knee, bilateral hips and ankles as well as normal shoulder, elbow and wrist motion bilaterally with intact motor function, distal pulses, sensation, reflexes and skin in both upper and lower extremities throughout. LABORATORY DATA: Shows a white count of 6.3 and C-reactive protein less than 0.5 mg/liter. IMAGING: X-rays of left knee showed what was read out as a possible osteochondral defect of the superior medial femoral condyle, but he was asymptomatic in this area on examination. IMPRESSION: Left knee cellulitis, resolved post-IV antibiotics overnight and prepatellar bursitis with no evidence of any joint effusion. TREATMENT PLAN: I had gone over with him that I do not think his knee joint itself is involved nor where there never really indications that the knee joint was involved, particularly because he does not have any effusion based on the attempted aspiration and the ultrasound examination. I think this is basically cellulitis and superficial bursitis, which can be managed nonoperatively. He indicated understanding of my rationale for nonsurgical management. Further management of antibiotic coverage per Infectious Disease and Orthopedic followup as necessary depending on his ongoing progress as I do not expect orthopedic intervention. ACTIVITY: As tolerated in the interim. MADDY WEBER MD DR: CAMERON/dina JOB#: [id number] / [id number]
== END 2020-09-22 12:50 | disposition home or self-care (01) | DRG 558 ==
LOC: ER 09:24 → ED HOLD 15:17 → 4 NORTH 18:32
PROVIDERS: ADMIT Internal Medicine; ATTEND Internal Medicine
PROC: 0S9D3ZZ Drainage of Left Knee Joint, Percutaneous Approach (ICD-10-PCS; principal; 2020-09-21)
DX: M70.42 Prepatellar bursitis, left knee (principal); L03.116 Cellulitis of left lower limb; M70.52 Other bursitis of knee, left knee; Z88.0 Allergy status to penicillin; Z79.899 Other long term (current) drug therapy; Y93.89 Activity, other specified
CPT/HCPCS: 36415; 73562; 80048; 83605; 85025; 85610; 85730; 86140; 87040; J3370; J3490; J7040; 97110-GP; 97530-GP; G0378